=== PATIENT | female | born 1970 | race Caucasian/White ===

== ENCOUNTER 2020-02-05 15:40 | Inpatient (IN) | payer BC, SELFPAY ==
[~2020-02-05] VITALS: Ht 160 cm; Wt 79.4 kg
[~2020-02-05 15:40] MED LIST: CEPH-568 PO
[2020-02-05 15:50] VITALS: BP_SYST 128
--- NOTE | 2020-02-05 15:50 | NUR ---
Placed in room 08 . Placed on monitoring manager, blood pressure machine and pulse oximeter. To gown for exam. Side rails up. Report given to PERRY Kelsey
--- NOTE | 2020-02-05 16:20 | NUR ---
Pt came to ER for SOB presents with tachypnea, O2 saturation WNL on RA. Pt appears anxious states she has tested positive for COVID, in gurney, on monitor, VSS.
--- NOTE | 2020-02-05 16:50 | NUR ---
JUDITH Cabrera at bedside examining patient.
[2020-02-05 17:41] LABS: BASOPHILS % (AUTO) 0.5 % (0.0-2.0); EOSINOPHILS % (AUTO) 0.4 % (0.0-4.0); HEMATOCRIT 40.7 % (36-48); HEMOGLOBIN 13.9 g/dL (12.0-16.0); LYMPHOCYTES # (AUTO) 1.1 K/uL (1.0-5.5); LYMPHOCYTES % (AUTO) 17.3 % (20.5-51.5); MEAN CORPUSCULAR HEMOGLOBIN 29 pg (27-31); MEAN CORPUSCULAR HGB CONC 34 % (32-36); MEAN CORPUSCULAR VOLUME 86 fL (79.0-98.0); MONOCYTES # (AUTO) 0.9 K/uL (0.0-1.0); MONOCYTES % (AUTO) 13.6 % (1.7-9.3); NEUTROPHILS # (AUTO) 4.4 K/uL (1.8-7.7); NEUTROPHILS % (AUTO) 68.2 % (40.0-70.0); PLATELET COUNT (AUTO) 276 K/uL (130-430); RED BLOOD CELL COUNT(AUTO) 4.75 MIL/uL (4.2-6.2); RED CELL DISTRIBUTION WIDTH 12.9 % (9.0-15.0); WHITE BLOOD COUNT (AUTO) 6.4 K/uL (4.8-10.8)
[2020-02-05 18:07] LABS: CALCIUM 8.8 mg/dL (8.4-11.0); CREATININE 0.76 mg/dL (0.55-1.30); POTASSIUM 3.8 mmol/L (3.5-5.1)
[2020-02-05 18:08] LABS: INR 0.9 (0.8-1.2); PROTHROMBIN TIME 9.2 SECS (9.5-12.5)
[2020-02-05 18:13] LABS: ALBUMIN 3.5 g/dL (3.4-4.8); TOTAL BILIRUBIN 0.4 mg/dL (0.0-1.0)
--- NOTE | 2020-02-05 18:46 | NUR ---
Pt resting in [facility] at this time, VSS, no complaints
[2020-02-05] MEDS ORDERED: DOXYCYCLINE HYCLATE 100 MG in D5W 100 ML IV ONE (19:15)
[2020-02-05] MEDS ORDERED: DEXAMETHASONE SOD PHOSPHATE 10 MG/ML VIAL IVP ONE (19:15)
[2020-02-05] MEDS: LR 1,000 ML IV SCH (19:15)
--- NOTE | 2020-02-05 19:15 | NUR ---
REPORT RECEIVED FROM PERRY GUILLERMO FOR CONTINUING CARE
[2020-02-05] MEDS ORDERED: DOXYCYCLINE HYCLATE 100 MG VIAL IV ONE (19:35)
--- NOTE | 2020-02-05 19:56 | NUR ---
Medication reconciliation completed with information provided by PT. Any prior medication reconciliation on file was reviewed and corrected.
--- NOTE | 2020-02-05 19:57 | NUR ---
Patient will be admitted to care of DR. LI. Admitted to TELE unit. Will go to room 125B. Belongings list completed. Complete and up to date summary report printed. SBAR report to be given at bedside with opportunity for questions.
--- NOTE | 2020-02-05 20:25 | NUR ---
ADMIT NOTE Received pt from ER to the floor with a diagnosis of Acute Covid/Pneumonia. Admission process initiated. patient oriented to pain management, safety and call light-teach back done.
[2020-02-05] MEDS: ALBUTEROL MDI INHALATION 8 GM INH INH SCH (21:00)
[2020-02-05 21:20] VITALS: BP_SYST 138
[2020-02-05 21:31] LABS: BILIRUBIN,URINE NEGATIVE (NEGATIVE); BLOOD, URINE NEGATIVE (NEGATIVE); CLARITY/URINE CLEAR (CLEAR); COLOR,URINE YELLOW (YELLOW); GLUCOSE,URINE NEGATIVE (NEGATIVE); KETONES,URINE TRACE (NEGATIVE); LEUKOCYTE ESTERASE ,URINE NEGATIVE (NEGATIVE); NITRITE, URINE NEGATIVE (NEGATIVE); PROTEIN URINE TRACE (NEGATIVE); UROBILINOGEN,URINE 0.2 (0.2-1.0)
[2020-02-05 21:32] VITALS: BP_SYST 138
[2020-02-05] MEDS ORDERED: CHOLECALCIFEROL (VITAMIN D3) 2,000 UNIT TABLET PO ONE (22:00)
[2020-02-05] MEDS ORDERED: APIXABAN 2.5 MG TABLET PO ONE (22:00)
[2020-02-05] MEDS ORDERED: FAMOTIDINE PF 20 MG/2 ML VIAL IVP ONE (22:00)
--- NOTE | 2020-02-05 22:00 | NUR ---
Dr. Vitale Rounds seen and examined patient. Updated MD on patient condition and situation. New orders to be input by MD. Will follow up.
[2020-02-05] MEDS: guaiFENesin/DEXTROMETHORPHAN 10 ML UDC PO PRN (22:23)
[2020-02-05] MEDS ORDERED: P-EPHED SUL/LORATADINE TAB.SR.12H PO ONE (22:30)
--- NOTE | 2020-02-05 22:44 | NUR ---
CONSULT: CONSULT CALLED FOR DR. OCAMPO I SPOKE WITH RENÉ EXCHANGE REASON FOR CONSULT: COVID -19 REQUESTING CONSULT: DR. LI ASSEMBLY OPERATOR PHONE NUMBER: [phone]
--- NOTE | 2020-02-05 23:36 | NUR ---
RN rounds Patient resting in bed, no signs of distress noted. Breathing even and unlabored. Scheduled and prn cough medications given, patient tolerated well. Educated the action and side effects of Eliquis. Patient verbalized understanding. No other needs. Call light with the patient. Safety precautions in place.
[2020-02-06 00:07] VITALS: BP_SYST 124
--- NOTE | 2020-02-06 02:29 | NUR ---
RN rounds Patient sleeping. No signs of distress noted. Breathing even and unlabored on room air. IVF infusing well. No needs. Call light with the patient. Safety precautions in place.
[2020-02-06] MEDS: guaiFENesin/DEXTROMETHORPHAN 10 ML UDC PO PRN (03:46)
--- NOTE | 2020-02-06 03:46 | NUR ---
Cough Patient complain of cough. PRN cough medication given. Educated the action and side effects of Robitussin. Patient verbalized understanding and tolerated well. IVF infusing well. No other needs. Call light with the patient. Safety precautions in place.
--- NOTE | 2020-02-06 06:36 | NUR ---
Closing notes Patient is resting in bed, no signs of distress noted. Breathing even and unlabored on room air. No complaints of SOB or cough at this time. Encouraged patient to prone or lay on side to help expand lungs. Patient verbalized understanding and laying on side at this time. all needs met throughout the shift. call light with the patient. Safety precautions in place. will endorse care to day shift RN.
--- NOTE | 2020-02-06 08:00 | NUR ---
AM ROUNDS: PATIENT LYING ON THE BED AWAKE,ALERT AND ORIENTED X4. IV FLUIDS RUNNING AT RIGHT AC INTACT. CONTACT,AIRBORNE AND DROPLET PRECAUTION RENDERED. CALL LIGHT WITH IN REACH. BED LOCKED AT LOWEST POSITION. CONTINUE TO MONITOR.
[2020-02-06] MEDS: FAMOTIDINE PF 20 MG/2 ML VIAL IVP SCH (08:49)
[2020-02-06] MEDS: P-EPHED SUL/LORATADINE TAB.SR.12H PO SCH (08:51)
[2020-02-06] MEDS: CHOLECALCIFEROL (VITAMIN D3) 2,000 UNIT TABLET PO SCH ×2 (08:51→21:15)
[2020-02-06] MEDS: MAGNESIUM OXIDE 400 MG TABLET PO SCH (08:51)
[2020-02-06] MEDS: MULTIVITAMINS TAB 1 TABLET PO SCH (08:51)
[2020-02-06 09:00] VITALS: BP_SYST 111
[2020-02-06] MEDS ORDERED: AZITHROMYCIN 250 MG TABLET PO SCH (09:00)
[2020-02-06] MEDS ORDERED: DEXAMETHASONE SOD PHOSPHATE 10 MG/ML VIAL IVP SCH (09:00)
[2020-02-06] MEDS ORDERED: DOXYCYCLINE HYCLATE 100 MG in D5W 100 ML IV SCH (09:00)
[2020-02-06] MEDS: APIXABAN 2.5 MG TABLET PO SCH (09:05)
[2020-02-06] MEDS ORDERED: ASCORBIC ACID 500 MG TABLET PO ONE (09:45)
[2020-02-06] MEDS: LR 1,000 ML IV SCH (09:59)
[2020-02-06] MEDS: ALBUTEROL MDI INHALATION 8 GM INH INH SCH ×4 (11:00→18:36)
[2020-02-06] MEDS: cefTRIAXone 1 GM in D5W 50 ML IV SCH (11:03)
[2020-02-06 11:35] LABS: ALANINE AMINOTRANSFERASE 50 U/L (12-78); ALBUMIN 3.5 g/dL (3.4-4.8); ANION GAP 14 (5-15); ASPARTATE AMINOTRANSFERASE 24 U/L (10-37); CALCIUM 9.3 mg/dL (8.4-11.0); CHLORIDE 104 mmol/L (98-107); CREATININE 0.77 mg/dL (0.55-1.30); GLUCOSE 138 mg/dL (70-99); POTASSIUM 4.3 mmol/L (3.5-5.1); SODIUM SERUM 143 mmol/L (136-145); TOTAL BILIRUBIN 0.4 mg/dL (0.0-1.0); UREA NITROGEN, BLOOD 15 mg/dL (8-21)
[2020-02-06 12:00] VITALS: BP_SYST 152
--- NOTE | 2020-02-06 12:20 | NUR ---
RN ROUNDS: TREASURY ASSISTANT SERVE LUNCH TRAY. NO ACUTE DISTRESS.
--- NOTE | 2020-02-06 13:28 | NUR ---
Dietitian Recommendations *Recommend continue Regular Diet *If PO intake appears to be suboptimal, recommmend provide Ensure Enlive BID to provide additional 700 kcal, 40 g protein to promote PO intake. Please see Nutrition Assessment for details. RAMIRO TOLENTINO
[2020-02-06 16:30] VITALS: BP_SYST 131
--- NOTE | 2020-02-06 16:45 | NUR ---
MD ROUNDS: PATIENT SEEN BY DR LI IN THE ROOM,WITH ORDERS TYLENOL PRN FOR HEADACHE AND ULTRAM Q 6HOURS.FOR BLOOD TEST IN AM.
[2020-02-06] MEDS: ACETAMINOPHEN 325 MG TABLET PO PRN (17:10)
[2020-02-06] MEDS: traMADol HCL HCL 50 MG TABLET (ULTRAM) PO SCH (18:02)
--- NOTE | 2020-02-06 18:39 | NUR ---
End of shift: Patient having dinner. Call light with in reach. Bed locked at lowest position. Condition guarded.No distress.
[2020-02-07] MEDS: traMADol HCL HCL 50 MG TABLET (ULTRAM) PO SCH ×5 (06:00→23:40)
[2020-02-07] MEDS: ALBUTEROL MDI INHALATION 8 GM INH INH SCH ×4 (07:00→18:42)
[2020-02-07 07:15] LABS: BASOPHILS % (AUTO) 0.1 % (0.0-2.0); HEMATOCRIT 36.5 % (36-48); HEMOGLOBIN 12.2 g/dL (12.0-16.0); LYMPHOCYTES # (AUTO) 1.1 K/uL (1.0-5.5); LYMPHOCYTES % (AUTO) 6.6 % (20.5-51.5); MEAN CORPUSCULAR HEMOGLOBIN 29 pg (27-31); MEAN CORPUSCULAR HGB CONC 34 % (32-36); MEAN CORPUSCULAR VOLUME 86 fL (79.0-98.0); MONOCYTES # (AUTO) 1.3 K/uL (0.0-1.0); MONOCYTES % (AUTO) 7.3 % (1.7-9.3); NEUTROPHILS # (AUTO) 14.8 K/uL (1.8-7.7); PLATELET COUNT (AUTO) 334 K/uL (130-430); RED BLOOD CELL COUNT(AUTO) 4.26 MIL/uL (4.2-6.2); RED CELL DISTRIBUTION WIDTH 12.7 % (9.0-15.0); WHITE BLOOD COUNT (AUTO) 17.2 K/uL (4.8-10.8)
[2020-02-07 07:27] LABS: CALCIUM 8.6 mg/dL (8.4-11.0); CREATININE 0.76 mg/dL (0.55-1.30); POTASSIUM 3.7 mmol/L (3.5-5.1); TOTAL BILIRUBIN 0.3 mg/dL (0.0-1.0)
--- NOTE | 2020-02-07 08:10 | NUR ---
AM ROUNDS: UPDATES RECEIVED FROM NIGHT NURSE REY.PATIENT LYING ON THE BED,AWAKE.ALERT AND ORIENTED X4. ROOM AIR. IV FLUIDS RUNNING AT RIGHT FOREARM INTACT. CONTACT ISOLATION PRECAUTION RENDERED.CALL LIGHT WITH IN REACH. BED LOCKED AT LOWEST POSITION. NOT IN ANY DISTRESS.
[2020-02-07 08:30] VITALS: BP_SYST 113
[2020-02-07] MEDS: LR 1,000 ML IV SCH ×2 (08:30→21:25)
[2020-02-07] MEDS: FAMOTIDINE PF 20 MG/2 ML VIAL IVP SCH ×2 (08:39→21:15)
[2020-02-07] MEDS: P-EPHED SUL/LORATADINE TAB.SR.12H PO SCH ×2 (08:40→21:15)
[2020-02-07] MEDS: APIXABAN 2.5 MG TABLET PO SCH ×2 (08:40→21:15)
[2020-02-07] MEDS: MAGNESIUM OXIDE 400 MG TABLET PO SCH ×2 (08:41→21:15)
[2020-02-07] MEDS: DOXYCYCLINE HYCLATE 100 MG CAPSULE PO SCH ×2 (08:41→21:15)
[2020-02-07] MEDS: CHOLECALCIFEROL (VITAMIN D3) 2,000 UNIT TABLET PO SCH ×2 (08:42→21:15)
[2020-02-07] MEDS: MULTIVITAMINS TAB 1 TABLET PO SCH (08:43)
[2020-02-07] MEDS: ASCORBIC ACID 500 MG TABLET PO SCH (08:44)
[2020-02-07] MEDS: cefTRIAXone 1 GM in D5W 50 ML IV SCH (10:06)
[2020-02-07 12:00] VITALS: BP_SYST 139
--- NOTE | 2020-02-07 12:10 | NUR ---
ID ROUNDS: NOT CLEAR WITH ID ,PATIENT TO CONTINUE IV RENDEZEVIR FOR FEW MORES DAYS PER ID. AWARE.
--- NOTE | 2020-02-07 12:42 | NUR ---
Spoke w/ patient-she stated she can go home w/her when she is discharged-there is no reason she cannot go home when she is discharged
[2020-02-07 16:00] VITALS: BP_SYST 127
--- NOTE | 2020-02-07 16:00 | NUR ---
RN ROUNDS: RESTING. STABLE.
--- NOTE | 2020-02-07 19:20 | NUR ---
CLOSING NOTES: PATIENT ON PRONE POSITION. WELL TOLERATED. CALL LIGHT WITH IN REACH. BED LOCKED AT LOWEST POSITION. NO DISTRESS.
--- NOTE | 2020-02-07 19:30 | NUR ---
Initial Notes: Received report from dayssanazft RN. Patient is in bed, resting. No s/s of acute distress. Even, nonlabored respirations on room air. IV sites are patent and intact. Bed is locked at lowest position. Side rails up x2. Call light with patient. Covid, safety, and fall precautions in place. Will continue with plan of care.
[2020-02-07 20:00] VITALS: BP_SYST 132
--- NOTE | 2020-02-07 21:30 | NUR ---
Rounds: Patient is on her phone, resting in bed. No acute distress. Even and unlabored breathing. Call light is with patient. Covid, safety, and fall precautions in place. Will continue to monitor.
--- NOTE | 2020-02-07 23:45 | NUR ---
Rounds: Patient is proning in bed. No s/s of acute distress. Respirations are even and unlabored on room air. Call light is with patient. Covid, safety, and fall precautions in place. Will continue to monitor.
[2020-02-08] VITALS: BP_SYST 136
[2020-02-08] MEDS: ONDANSETRON HCL 4 MG/2 ML VIAL IVP PRN ×2 (01:34→08:19)
--- NOTE | 2020-02-08 01:34 | NUR ---
Nausea/Vomiting: Patient complained of nausea and vomiting. Zofran 4mg IVP indicated. Educated patient on indications and side effects of Zofran. Patient verbalized understanding. Medication administered per MD order. Patient tolerated well. Will continue to monitor.
--- NOTE | 2020-02-08 04:00 | NUR ---
Rounds: Patient is sleeping. No s/s of acute distress. Breathing is even and unlabored on room air. Call light is with patient. Covid, safety, and fall precautions in place. Will continue to monitor.
[2020-02-08] MEDS: traMADol HCL HCL 50 MG TABLET (ULTRAM) PO SCH ×4 (06:00→23:35)
[2020-02-08] MEDS: ALBUTEROL MDI INHALATION 8 GM INH INH SCH ×3 (06:11→15:30)
--- NOTE | 2020-02-08 06:40 | NUR ---
Closing notes: Patient is in bed, resting. No acute distress. Even, nonlabored respirations on room air. IV sites are patent and intact. All needs met. Bed is locked at lowest position. Side rails up x2. Call light with patient. Covid, safety, and fall precautions in place. Will endorse to dayshift RN.
[2020-02-08 07:15] LABS: BASOPHILS % (AUTO) 0.2 % (0.0-2.0); EOSINOPHILS % (AUTO) 0.1 % (0.0-4.0); HEMATOCRIT 36.6 % (36-48); HEMOGLOBIN 12.4 g/dL (12.0-16.0); LYMPHOCYTES % (AUTO) 13.8 % (20.5-51.5); MEAN CORPUSCULAR HEMOGLOBIN 29 pg (27-31); MEAN CORPUSCULAR HGB CONC 34 % (32-36); MEAN CORPUSCULAR VOLUME 86 fL (79.0-98.0); MONOCYTES # (AUTO) 1.2 K/uL (0.0-1.0); NEUTROPHILS # (AUTO) 11.3 K/uL (1.8-7.7); NEUTROPHILS % (AUTO) 77.9 % (40.0-70.0); PLATELET COUNT (AUTO) 362 K/uL (130-430); RED BLOOD CELL COUNT(AUTO) 4.26 MIL/uL (4.2-6.2); RED CELL DISTRIBUTION WIDTH 12.9 % (9.0-15.0); WHITE BLOOD COUNT (AUTO) 14.5 K/uL (4.8-10.8)
[2020-02-08 07:28] LABS: ALBUMIN 3.1 g/dL (3.4-4.8); CALCIUM 8.3 mg/dL (8.4-11.0); CREATININE 0.68 mg/dL (0.55-1.30); POTASSIUM 3.6 mmol/L (3.5-5.1); TOTAL BILIRUBIN 0.2 mg/dL (0.0-1.0)
[2020-02-08 07:58] VITALS: BP_SYST 125
--- NOTE | 2020-02-08 07:58 | NUR ---
INITIAL ROUNDS Received pt AAOx4, no s/s resp distress, pt states she coughs at times. Pt c/o headache-will check on pain medication. Plan of care for the day reviewed with pt-pt verbalized her understanding. Pt on Airborne and Droplet isolation precautions for Covid 19+. IVF infusing well to RFA at ordered rate with no s/s infiltration to site. Pain management, disease process-the importance opf proning through out the day, skin and safety discussed-teach back done. Call light within reach.
[2020-02-08] MEDS: ACETAMINOPHEN 325 MG TABLET PO PRN ×2 (08:20→20:35)
--- NOTE | 2020-02-08 08:20 | NUR ---
NAUSEA/VOMITING Pt vomiting-pt given Zofran as ordered and cold packs placed to pt's forehead for comfort.
[2020-02-08] MEDS: MAGNESIUM OXIDE 400 MG TABLET PO SCH ×2 (09:00→20:35)
[2020-02-08] MEDS: CHOLECALCIFEROL (VITAMIN D3) 2,000 UNIT TABLET PO SCH ×2 (09:00→20:35)
[2020-02-08] MEDS: APIXABAN 2.5 MG TABLET PO SCH ×2 (09:00→20:35)
[2020-02-08] MEDS: ASCORBIC ACID 500 MG TABLET PO SCH (09:00)
[2020-02-08] MEDS: MULTIVITAMINS TAB 1 TABLET PO SCH (09:00)
[2020-02-08] MEDS: DOXYCYCLINE HYCLATE 100 MG CAPSULE PO SCH ×2 (09:00→20:35)
[2020-02-08] MEDS: FAMOTIDINE PF 20 MG/2 ML VIAL IVP SCH ×3 (09:41→21:00)
[2020-02-08] MEDS ORDERED: FAMOTIDINE PF 20 MG/2 ML VIAL IVP ONE (09:45)
[2020-02-08] MEDS ORDERED: METOCLOPRAMIDE HCL 10 MG/2 ML VIAL IVP ONE (09:45)
[2020-02-08] MEDS: METOCLOPRAMIDE HCL 10 MG/2 ML VIAL IVP PRN ×2 (10:03→20:33)
[2020-02-08] MEDS: cefTRIAXone 1 GM in D5W 50 ML IV SCH (10:10)
--- NOTE | 2020-02-08 10:10 | NUR ---
ROUNDS/MD/VOMITING/HEADACHE Dr. Vitale here and informed of patient's c/o headache and severe vomiting. Pt given Pepcid earlier, now just given Reglan IV as ordered. Ice packs placed to patients forehead, light turned down low and window shade pulled down to promote rest. Pt declined breakfast. Call light within reach.
--- NOTE | 2020-02-08 11:23 | NUR ---
ROUNDS Pt now resting quietly in bed with no further c/o headache, no further nausea and vomiting. Pt asked if we can try giving her medications after lunch-she stated she did not want to throw them up. All precautions remain in place, call light within reach.
[2020-02-08] MEDS: LR 1,000 ML IV SCH (13:11)
[2020-02-08] MEDS: P-EPHED SUL/LORATADINE TAB.SR.12H PO SCH ×2 (13:31→20:35)
[2020-02-08 17:00] VITALS: BP_SYST 122
--- NOTE | 2020-02-08 18:45 | NUR ---
CLOSING NOTE Pt resting quietly in bed with no s/s resp distress, no c/o pain or discomfort. No further c/o N/V. Airborne and droplet isolation precautions maintained throughout shift. Needs met, call light within reach.
--- NOTE | 2020-02-08 19:30 | NUR ---
Initial Notes: Received report from dayssanazft RN. Patient is in bed, resting. No acute distress. Even, nonlabored breathing on room air. IV sites are patent and intact. Bed is locked at lowest position. Side rails up x2. Call light with patient. Covid, safety, and fall precautions in place. Will continue with plan of care.
[2020-02-08 20:00] VITALS: BP_SYST 129
--- NOTE | 2020-02-08 20:35 | NUR ---
Pain/Nausea/Vomiting: Patient complained of a mild headache and nausea/vomiting. Tylenol 650mg PO and Reglan 10mg IVP indicated. Educated patient on indications and side effects of medications. Patient verbalized understanding. Medication administered per MD order. Patient tolerated well. Will continue to monitor and reassess.
--- NOTE | 2020-02-08 23:35 | NUR ---
Rounds: Patient is sitting up at bedside. Patient complained of headache. Scheduled pain meds given at this time. Even and unlabored breathing on room air. Call light is with patient. Covid, safety, and fall precautions in place. Will to monitor and reassess.
[2020-02-09] VITALS: BP_SYST 125
--- NOTE | 2020-02-09 01:35 | NUR ---
Rounds: Patient is in bed, sleeping. No acute distress. Breathing is even and unlabored on room air. Call light is with patient. Covid, safety and fall precautions in place. Will continue monitoring.
--- NOTE | 2020-02-09 04:00 | NUR ---
Rounds: Patient is in bed, sleeping. No signs of acute distress. Respirations are even and nonlabored. Call light is with patient. Covid, safety and fall precautions in place. Will continue to monitor.
[2020-02-09] MEDS: traMADol HCL HCL 50 MG TABLET (ULTRAM) PO SCH ×3 (05:35→18:03)
[2020-02-09] MEDS: ALBUTEROL MDI INHALATION 8 GM INH INH SCH (06:01)
[2020-02-09 06:38] LABS: BASOPHILS % (AUTO) 0.2 % (0.0-2.0); EOSINOPHILS # (AUTO) 0.1 K/uL (0.0-0.4); EOSINOPHILS % (AUTO) 1.2 % (0.0-4.0); HEMOGLOBIN 12.5 g/dL (12.0-16.0); LYMPHOCYTES # (AUTO) 1.5 K/uL (1.0-5.5); LYMPHOCYTES % (AUTO) 16.3 % (20.5-51.5); MEAN CORPUSCULAR HEMOGLOBIN 29 pg (27-31); MEAN CORPUSCULAR HGB CONC 34 % (32-36); MEAN CORPUSCULAR VOLUME 86 fL (79.0-98.0); MONOCYTES # (AUTO) 0.9 K/uL (0.0-1.0); MONOCYTES % (AUTO) 9.5 % (1.7-9.3); NEUTROPHILS # (AUTO) 6.7 K/uL (1.8-7.7); NEUTROPHILS % (AUTO) 72.8 % (40.0-70.0); PLATELET COUNT (AUTO) 351 K/uL (130-430); RED BLOOD CELL COUNT(AUTO) 4.32 MIL/uL (4.2-6.2); RED CELL DISTRIBUTION WIDTH 12.9 % (9.0-15.0); WHITE BLOOD COUNT (AUTO) 9.2 K/uL (4.8-10.8)
--- NOTE | 2020-02-09 06:45 | NUR ---
Closing notes: Patient is in bed, resting. No acute distress. Even, nonlabored breathing on room air. IV sites are patent and intact. All needs met. Bed is locked at lowest position. Side rails up x2. Call light with patient. Covid, safety, and fall precautions in place. Will endorse to dayshift RN.
[2020-02-09 07:06] LABS: ALBUMIN 2.7 g/dL (3.4-4.8); C-REACTIVE PROTEIN QUANT 3.3 mg/dL (0-0.5); CALCIUM 8.8 mg/dL (8.4-11.0); CREATININE 0.66 mg/dL (0.55-1.30); POTASSIUM 3.4 mmol/L (3.5-5.1); TOTAL BILIRUBIN 0.4 mg/dL (0.0-1.0)
[2020-02-09] MEDS: FAMOTIDINE PF 20 MG/2 ML VIAL IVP SCH ×3 (09:00→20:58)
[2020-02-09] MEDS: LR 1,000 ML IV SCH ×2 (09:03→23:00)
[2020-02-09] MEDS: DOXYCYCLINE HYCLATE 100 MG CAPSULE PO SCH ×2 (09:24→20:58)
[2020-02-09] MEDS: MAGNESIUM OXIDE 400 MG TABLET PO SCH ×2 (09:24→20:58)
[2020-02-09] MEDS: MULTIVITAMINS TAB 1 TABLET PO SCH (09:24)
[2020-02-09] MEDS: P-EPHED SUL/LORATADINE TAB.SR.12H PO SCH ×2 (09:24→20:58)
[2020-02-09] MEDS: ASCORBIC ACID 500 MG TABLET PO SCH (09:25)
[2020-02-09] MEDS: CHOLECALCIFEROL (VITAMIN D3) 2,000 UNIT TABLET PO SCH ×2 (09:25→20:59)
[2020-02-09] MEDS: cefTRIAXone 1 GM in D5W 50 ML IV SCH (09:25)
[2020-02-09] MEDS: APIXABAN 2.5 MG TABLET PO SCH ×2 (09:27→20:59)
[2020-02-09] MEDS: ACETAMINOPHEN 325 MG TABLET PO PRN (09:28)
[2020-02-09 10:00] VITALS: BP_SYST 130
[2020-02-09 12:44] VITALS: BP_SYST 146
[2020-02-09] MEDS ORDERED: POTASSIUM CHLORIDE 20 MEQ TAB.PRT.SR PO ONE (16:00)
[2020-02-09 17:00] VITALS: BP_SYST 135
--- NOTE | 2020-02-09 18:58 | NUR ---
Nutrition F/U (short note d/t high patient load) RD reviewed pt's current EMR including diet Hx, physician notes, nursing notes, pertinent labs/meds/procedures, care trends, and care activity. Current Diet Order: Regular x4 days Per EMR review, pt has been eating on average 53% x8 meals. Pt would benefit from ONS Ensure Enlive BID to increase nutritional intakes. Pt is at moderate nutritional risk; RD to F/U within 3-5 days. Addendum: 02/09/20 at [address] Ensure Enlive BID will provide an additional 700 kcal/day, 40 gm protein/day
[2020-02-09 20:40] VITALS: BP_SYST 135
--- NOTE | 2020-02-09 20:40 | NUR ---
Opening notes Pt AAOx4, VSS, afebrile. Pt watching on Ipad, no s/s distress noted. Pt states pain is ok at this time. IVF infusing R.FA 20G no s/s infiltration. Call light within reach. BEd low, locked, siderails up x2. Covid isolation maintained. To monitor.
[2020-02-10 00:11] VITALS: BP_SYST 120
--- NOTE | 2020-02-10 00:19 | NUR ---
Rounds Pt asleep, VSS, no s/s distress noted. SR on the monitor. Call light/items within reach. Covide isolation maintained. To monitor.
--- NOTE | 2020-02-10 02:30 | NUR ---
Bathroom Pt ambulated to the bathroom, steady gait. No c/o pain, dizziness or sob. IVF infusing at ordered rate R. FA no s/s infiltration. Call light within reach. To monitor.
--- NOTE | 2020-02-10 04:42 | NUR ---
Rounds Pt asleep, no s/s distress noted. SR on the monitor. Call light/items within reach. Bed low, locked, siderails up x2. Covid isolation maintained. To monitor.
[2020-02-10] MEDS: traMADol HCL HCL 50 MG TABLET (ULTRAM) PO SCH ×3 (06:00→12:00)
--- NOTE | 2020-02-10 06:35 | NUR ---
Closing notes Pt AAOx4. Pt watching on Ipad, no s/s distress noted. Pt denies pain at this time and refused scheduled ultram. IVF infusing at ordered rate R.FA 20G no s/s infiltration. Call light within reach. Bed low, locked, siderails up x2. Covid isolation maintained. To endorse to AM nurse.
--- NOTE | 2020-02-10 08:00 | NUR ---
OPENING NOTES, RECEIVED PT IN BED, PT IS AAOX4, DENIES PAIN, NO SOB, NO RESP DISTRESS, PT HAS NO FEVER. ENCOURAGED TO CALL FOR ASSIST AND PAIN MEDS. WILL CONT TO MONITOR.
[2020-02-10 08:20] VITALS: BP_SYST 134
[2020-02-10] MEDS ORDERED: POTASSIUM CHLORIDE 20 MEQ TAB.PRT.SR PO SCH (09:00)
[2020-02-10] MEDS: P-EPHED SUL/LORATADINE TAB.SR.12H PO SCH (09:12)
[2020-02-10] MEDS: FAMOTIDINE PF 20 MG/2 ML VIAL IVP SCH (09:12)
[2020-02-10] MEDS: MAGNESIUM OXIDE 400 MG TABLET PO SCH (09:13)
[2020-02-10] MEDS: MULTIVITAMINS TAB 1 TABLET PO SCH (09:13)
[2020-02-10] MEDS: APIXABAN 2.5 MG TABLET PO SCH (09:13)
[2020-02-10] MEDS: ASCORBIC ACID 500 MG TABLET PO SCH (09:13)
[2020-02-10] MEDS: DOXYCYCLINE HYCLATE 100 MG CAPSULE PO SCH (09:13)
[2020-02-10] MEDS: cefTRIAXone 1 GM in D5W 50 ML IV SCH (09:14)
[2020-02-10] MEDS: CHOLECALCIFEROL (VITAMIN D3) 2,000 UNIT TABLET PO SCH (09:14)
--- NOTE | 2020-02-10 12:00 | NUR ---
PT IN BED, RESTING, REFUSED SCHEDULED ULTRAM.
[2020-02-10 15:55] VITALS: BP_SYST 147
[2020-02-10] MEDS ORDERED: POTA20TA83 PO (15:56)
[2020-02-10] MEDS ORDERED: VITD2000 PO (15:56)
[2020-02-10] MEDS ORDERED: ZINC220T4 PO (15:56)
[2020-02-10] MEDS ORDERED: APIX2.5T PO (15:56)
[2020-02-10] MEDS ORDERED: DOXY100C2 PO (15:56)
[2020-02-10] MEDS ORDERED: MAGN400T10 PO (15:56)
[2020-02-10] MEDS ORDERED: ASC500 PO (15:56)
[2020-02-10 16:02] VITALS: BP_SYST 147
--- NOTE | 2020-02-10 17:27 | NUR ---
D/C Patient Patient given medication reconciliation form and D/C instructions. Exit Care provided. Patient verbalized understanding. MD discussed with patient the results and treatment provided. Ambulatory with steady gait for discharge to home. Patient in stable condition, ID band removed. IV catheter removed, intact and dressing applied, no active bleeding. ERx of ELIADRIANA, K DUR, MAG OXIDE, ZINC, VIT C, VIT D given. Patient educated on pain management. All belongings sent with patient.
--- NOTE | 2020-02-12 13:29 | NUR ---
Discharge Follow Up Phone Call Phoned patient, . Patient stated she was doing fine. She filled her prescriptions and is taking her medication as directed. She understands isolation precautions. She does not have a PCP. Spent at least 10 min discussing the importance of having a PCP, how to find one, how to get a soonest appointment. No other questions or concerns.
== END 2020-02-10 17:12 | disposition home or self-care (01) | DRG 177 ==
LOC: SED 15:40 → STU 19:06
PROVIDERS: ADMIT Internal Medicine; ATTEND Internal Medicine
PROC: XW13325 Transfusion of Convalescent Plasma (Nonautologous) into Peripheral Vein, Percutaneous Approach, New Technology Group 5 (ICD-10-PCS; principal; 2020-02-07)
PROC: XW033E5 Introduction of Remdesivir Anti-infective into Peripheral Vein, Percutaneous Approach, New Technology Group 5 (ICD-10-PCS; 2020-02-07)
DX: U07.1 COVID-19 (principal); J12.89 Other viral pneumonia; J96.00 Acute respiratory failure, unspecified whether with hypoxia or hypercapnia; E44.0 Moderate protein-calorie malnutrition; E66.9 Obesity, unspecified; E87.6 Hypokalemia; J20.9 Acute bronchitis, unspecified; Z68.31 Body mass index [BMI] 31.0-31.9, adult
CPT/HCPCS: 36415; 71045; 80053; 81003; 82728; 82962; 83690-TC; 84484; 84703; 85025; 85379; 85610-TC; 85730-TC; 86140; 86886; 86900; 86901; 87040-TC; 87086; 93005; 96361; 96374; 99285; G0378; J0696; J1100; J2405; J2765; J3490; J7050; J7060; J7120; P9017; Q0144

== ENCOUNTER 2021-01-02 09:12 | Outpatient (CLI) | payer BC ==
[~2021-01-02 09:12] MED LIST changes: +APIX2.5T PO; +ASC500 PO; -CEPH-568 PO; +DOXY100C5 PO; +MAGN400T10 PO; +POTA20TA83 PO; +VITD2000 PO; +ZINC220T4 PO
== END 2021-01-03 13:28 | disposition home or self-care (01) ==
LOC: SMI 09:12
PROVIDERS: ATTEND Internal Medicine
DX: N85.2 Hypertrophy of uterus (principal); D25.1 Intramural leiomyoma of uterus; D25.2 Subserosal leiomyoma of uterus; N92.1 Excessive and frequent menstruation with irregular cycle
CPT/HCPCS: 72195